=== PATIENT | male | born 1980 | race Caucasian/White ===

== ENCOUNTER → 2017-11-30 | Outpatient (REF) ==
[~2017-11-30] MED LIST: AZI250 PO; DIP25 PO; IBUP800T37 PO; LOR5/325 PO; NO ROUTINE MEDS; PEN250L PO; PRE20 PO
== END ==
LOC: AUD 10:20
PROVIDERS: ATTEND Family Medicine
DX: Z01.10 Encounter for examination of ears and hearing without abnormal findings (principal)
CPT/HCPCS: 92552